=== PATIENT | female | born 1950 | race Caucasian/White ===

== ENCOUNTER 2019-02-25 09:39 | Outpatient (CLI) | payer MEDICARE ==
--- NOTE | 2019-02-25 11:13 | BD ---
DEXA BONE DENSITY STUDY: Date: 02/25/19 COMPARISON: None. HISTORY: 68-year-old postmenopausal female for screening. FINDINGS: Lumbar Spine: BMD (g/cm2) L1 0.902 T-Score: -0.8 L2 0.889 T-Score: -1.3 L3 1.000 T-Score: -0.8 L4 0.955 T-Score: -1.0 L1-L4 0.941 T-Score: -1.0 Left Femoral Neck: 0.745 T-Score: -1.8 Total Femur: 0.887 T-Score: -0.5 IMPRESSION: Osteopenia. This patient has a 10 year WHO fracture risk for a major osteoporotic fracture of 16% and hip fracture of 2.4%. POS: [facility]
== END 2019-02-25 09:40 | disposition home or self-care (01) ==
LOC: BICMAMMO 09:39
PROVIDERS: ATTEND Student in an Organized Health Care Education/Training Program
DX: Z13.820 Encounter for screening for osteoporosis (principal); M85.89 Other specified disorders of bone density and structure, multiple sites
CPT/HCPCS: 77080

== ENCOUNTER 2022-06-02 10:03 | Outpatient (CLI) | payer MEDICARE | END 2022-06-02 10:04 | disposition home or self-care (01) | LOC: BICMAMMO 10:03 | PROVIDERS: ATTEND Family Medicine | DX: Z12.31 Encounter for screening mammogram for malignant neoplasm of breast (principal) | CPT/HCPCS: 77063; 77067 ==

== ENCOUNTER 2023-07-14 10:45 | Outpatient (CLI) | payer MEDICARE | END 2023-07-14 10:46 | disposition home or self-care (01) | LOC: BICMAMMO 10:45 | PROVIDERS: ATTEND Family Medicine | DX: Z12.31 Encounter for screening mammogram for malignant neoplasm of breast (principal); Z98.890 Other specified postprocedural states | CPT/HCPCS: 77063; 77067 ==

== ENCOUNTER 2024-07-15 09:30 | Outpatient (CLI) | payer MEDICARE | END 2024-07-15 09:31 | disposition home or self-care (01) | LOC: BICMAMMO 09:30 | PROVIDERS: ATTEND Family Medicine | DX: Z12.31 Encounter for screening mammogram for malignant neoplasm of breast (principal) | CPT/HCPCS: 77063; 77067 ==